=== PATIENT | female | born 1945 | race Two or more races ===

== ENCOUNTER → 2022-10-01 | Outpatient (CLI) | payer OTHER ==
[~2022-10-01] VITALS: Ht 152.4 cm; Wt 77.1 kg
[~2022-10-01] MED LIST: BACTRIM DS TAB1 EACH PO; CATAPRES; COZAAR50 MG PO; INTEGRA PLUS C1 EACH PO; LOTREL 10-20 M1 EACH PO; METFORMIN HCL1000 MG; NEURONTIN; NEURONTIN800 MG PO; OXYC1TAB9 PO; SIMVASTATIN; SINGULAIR10 MG PO; XARELTO10 MG PO
== END | disposition home or self-care (01) ==
LOC: LAB 08:00 → EDSTATUS 10-04 10:30 → SURH 10-04 10:30
PROVIDERS: ATTEND Orthopaedic Surgery Sports Medicine
DX: Z20.822 Contact with and (suspected) exposure to COVID-19 (principal); I10 Essential (primary) hypertension

== ENCOUNTER 2022-10-29 09:41 | Inpatient (IN) | payer OTHER ==
[~2022-10-29] VITALS: Ht 144.8 cm; Wt 77.1 kg
[~2022-10-29 09:41] MED LIST changes: -BACTRIM DS TAB1 EACH PO; -INTEGRA PLUS C1 EACH PO; -OXYC1TAB9 PO; -XARELTO10 MG PO
[2022-11-03] MEDS ORDERED: OXYC1TAB9 PO (06:12)
[2022-11-03] MEDS ORDERED: BACTRIM DS TAB1 EACH PO (06:12)
[2022-11-03] MEDS ORDERED: XARELTO10 MG PO (06:12)
[2022-11-03] MEDS ORDERED: INTEGRA PLUS C1 EACH PO (06:12)
== END 2022-11-04 12:43 | DRG 470 ==
LOC: SURG-SUITE 10:15 → O/R 11-01 06:20 → SURG 11-01 06:20 → MEDI 11-01 17:14 → SURG 11-01 19:17
PROVIDERS: ADMIT Orthopaedic Surgery Sports Medicine; ATTEND Orthopaedic Surgery Sports Medicine
PROC: 3E0F7SF Introduction of Other Gas into Respiratory Tract, Via Natural or Artificial Opening (ICD-10-PCS; 2022-11-01)
PROC: 0SRD0J9 Replacement of Left Knee Joint with Synthetic Substitute, Cemented, Open Approach (ICD-10-PCS; principal; 2022-11-01 13:30)
DX: M17.12 Unilateral primary osteoarthritis, left knee (principal); E11.9 Type 2 diabetes mellitus without complications; I10 Essential (primary) hypertension; J45.909 Unspecified asthma, uncomplicated; Z79.84 Long term (current) use of oral hypoglycemic drugs

== ENCOUNTER 2022-12-20 07:12 | Day surgery (SDC) | payer OTHER ==
[~2022-12-20] VITALS: Ht 152.4 cm; Wt 73.0 kg
[~2022-12-20 07:12] MED LIST changes: +BACTRIM DS TAB1 EACH PO; +INDAPAMIDE2.5 MG PO; +INTEGRA PLUS C1 EACH PO; -METFORMIN HCL1000 MG; +METFORMIN HCL1000 MG PO; +OXYC1TAB9 PO; +XARELTO10 MG PO
[2022-12-20] MEDS ORDERED: DUI500 PO (14:58)
[2022-12-20] MEDS ORDERED: OXYC1TAB9 PO (14:58)
== END 2022-12-20 16:30 | disposition home or self-care (01) ==
LOC: CIR.AMB 07:12
PROVIDERS: ATTEND Orthopaedic Surgery Sports Medicine
DX: M24.562 Contracture, left knee (principal); Z88.1 Allergy status to other antibiotic agents; I10 Essential (primary) hypertension; E11.9 Type 2 diabetes mellitus without complications; Z79.84 Long term (current) use of oral hypoglycemic drugs; Z20.822 Contact with and (suspected) exposure to COVID-19